=== PATIENT | female | born 1955 | race Caucasian/White ===

== ENCOUNTER 2017-01-27 13:32 | Emergency (ER) | payer OTHER, SELFPAY ==
[2017-01-27 13:32] VITALS: BMI 26.6
[2017-01-27 13:39] VITALS: BP 134/72; PULSE 77; RESP 18; TEMP 98.4
[2017-01-27] MEDS ORDERED: Amoxicillin-Clav 875-125 mg Tab PO STA (14:22)
[2017-01-27] MEDS ORDERED: Amoxicillin-Clav 875-125 mg Tab PO ONE (14:27)
--- NOTE | 2017-01-27 15:02 | C.PDOC ---
History Of Present Illness 61 yr old female with PMHx of allergies, presents to the ER stating over the past 2-3 days she has developed a headache, associated with facial pressure and increased nasal congestion. Patient states the pressure worsened when she leans forward. Denies fever, chills, chest pain, SOB, cough or dizziness. Time Seen by Provider: 01/27/17 14:05 Chief Complaint (Nursing): Cough, Cold, Congestion History Per: Patient History/Exam Limitations: no limitations Onset/Duration Of Symptoms: Days (2-3 days ) Past Medical History Reviewed: Historical Data, Nursing Documentation, Vital Signs Vital Signs: Last Vital Signs Temp 98.4 F 01/27/17 15:17 Pulse 77 01/27/17 15:17 Resp 18 01/27/17 15:17 BP 134/72 01/27/17 15:17 Pulse Ox 100 01/27/17 15:17 Family History: States: No Known Family Hx - Social History Hx Tobacco Use: No Hx Alcohol Use: No Hx Substance Use: No - Immunization History Hx Tetanus Toxoid Vaccination: No Hx Influenza Vaccination: Yes Hx Pneumococcal Vaccination: No Review Of Systems Except As Marked, All Systems Reviewed And Found Negative. Constitutional: Positive for: Other ((+) Facial pressure). Negative for: Fever , Chills ENT: Positive for: Nose Congestion (Increased nasal congestion ) Cardiovascular: Negative for: Chest Pain Respiratory: Negative for: Cough, Shortness of Breath Neurological: Positive for: Headache. Negative for: Dizziness Physical Exam - Physical Exam Appears: Non-toxic, No Acute Distress Skin: Warm, Dry, No Rash Head: Atraumatic, Normacephalic, Other ((+) Bilateral frontal sinus tenderness. ) Eye(s): bilateral: Normal Inspection, PERRL, EOMI Ear(s): Bilateral: Normal Nose: Normal, No Discharge Oral Mucosa: Moist Throat: Normal, No Erythema, No Exudate, No Drooling Neck: Normal ROM, Supple Chest: Symmetrical, No Tenderness Cardiovascular: Rhythm Regular, No Friction Rub, No Murmur Respiratory: Normal Breath Sounds, No Rales, No Rhonchi, No Stridor, No Wheezing Back: Normal Inspection, No CVA Tenderness Extremity: Normal ROM, No Swelling Neurological/Psych: Oriented x3, Normal Speech, Normal Cranial Nerves, Normal Motor Gait: Steady ED Course And Treatment O2 Sat by Pulse Oximetry: 98 (on RA) Pulse Ox Interpretation: Normal Medical Decision Making Medical Decision Making: PLAN: * Augmentin PO * Tylenol PO * Prednisone PO On re-exam, the patient reports improvement of symptoms. Lungs are CTA, heart is RRR, ambulatory in the ED steady gait. Follow up with the medical doctor within 1-2 days. Return if worsened. Disposition - Disposition Referrals: [facility] [Outside] Disposition: HOME/ ROUTINE Disposition Time: 15:00 Condition: GOOD Additional Instructions: Follow up with the medical doctor within 1-2 days, Return if worsened. 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 - Scribe Statement The provider has reviewed the documentation as recorded by the Scribe Dana Sapp All medical record entries made by the Scribtolu were at my direction and personally dictated by me. I have reviewed the chart and agree that the record accurately reflects my personal performance of the history, physical exam, medical decision making, and the department course for this patient. I have also personally directed, reviewed, and agree with the discharge instructions and disposition.
[2017-01-27 22:20] VITALS: O2SAT 98
== END 2017-01-27 15:17 | disposition home or self-care (01) ==
LOC: C.ER 13:32
DX: J32.9 Chronic sinusitis, unspecified (principal)

== ENCOUNTER 2017-02-06 09:52 | Emergency (ER) | payer OTHER ==
[2017-02-06 09:52] VITALS: BMI 26.6
[2017-02-06 10:01] VITALS: RESP 20; TEMP 98.6
--- NOTE | 2017-02-06 11:14 | C.PDOC ---
History Of Present Illness 61-year-old female, presents to the emergency department with complaints of 10- day duration of a frontal pressure headache. Patient states she was seen in the ER last week and given Rx for Augmentin to treat Sinusitis. Patient states she finished course, but symptoms persisted, resulting in her coming to ED for evaluation. She continues to have frontal pressure headache, congestion and now reports developing non-productive cough for the last 3 days. Denies nausea, vomiting, fever, chills, chest pain, SOB, back pain, dizziness, or any other associated symptoms. Time Seen by Provider: 02/06/17 10:23 Chief Complaint (Nursing): Flu-like Symptoms History Per: Patient History/Exam Limitations: no limitations Onset/Duration Of Symptoms: Days Current Symptoms Are (Timing): Still Present Associated Symptoms: Cough, Nasal Congestion Ear Symptoms: Bilateral: None Past Medical History Reviewed: Historical Data, Nursing Documentation, Vital Signs Vital Signs: Last Vital Signs Temp 98.6 F 02/06/17 10:00 Pulse 73 02/06/17 12:07 Resp 20 02/06/17 12:07 BP 128/83 02/06/17 12:07 Pulse Ox 97 02/06/17 12:07 - Medical History PMH: No Chronic Diseases Surgical History: No Surg Hx Family History: States: No Known Family Hx - Social History Hx Tobacco Use: No Hx Alcohol Use: No Hx Substance Use: No - Immunization History Hx Tetanus Toxoid Vaccination: No Hx Influenza Vaccination: Yes Hx Pneumococcal Vaccination: No Review Of Systems Constitutional: Negative for: Fever, Chills, Malaise Eyes: Negative for: Vision Change ENT: Positive for: Nose Congestion. Negative for: Ear Pain, Throat Pain Cardiovascular: Negative for: Chest Pain, Palpitations Respiratory: Positive for: Cough. Negative for: Shortness of Breath Gastrointestinal: Positive for: Abdominal Pain. Negative for: Nausea, Vomiting Musculoskeletal: Negative for: Neck Pain, Back Pain Skin: Negative for: Rash Neurological: Positive for: Headache. Negative for: Weakness, Numbness, Dizziness Physical Exam - Physical Exam Appears: Non-toxic, No Acute Distress Skin: Warm, Dry, No Diaphoretic, No Pale, No Rash Head: Atraumatic, Normacephalic, No Tenderness, No Swelling Eye(s): bilateral: Normal Inspection, PERRL, EOMI Nose: Normal Oral Mucosa: Moist Throat: Normal, No Erythema, No Exudate, No Drooling, No Mass Neck: Normal ROM, Supple Chest: Symmetrical Cardiovascular: Rhythm Regular, No Murmur Respiratory: Normal Breath Sounds, No Rales, No Rhonchi, No Wheezing Extremity: Bilateral: Atraumatic, Normal Color And Temperature, Normal ROM Neurological/Psych: Oriented x3, Normal Speech, Normal Cranial Nerves, Normal Motor, Normal Sensation, Other (No focal deficits) Gait: Steady ED Course And Treatment O2 Sat by Pulse Oximetry: 96 Pulse Ox Interpretation: Normal - Other Rad CXR X-Ray: Viewed By Me, Read By Radiologist Interpretation: HISTORY: cough. COMPARISON: No prior. TECHNIQUE: Chest PA and lateral. FINDINGS: LUNGS: Biapical pleural thickening with upper lobe granulomatous changes. Small nodular density at the right lung apex. Bibasilar breast and nipple shadows. Diffuse increased interstitial lung markings. Right hilar prominence. Right midlung atelectasis. Few scattered nodular densities throughout both lungs. PLEURA: No significant pleural effusion identified. No pneumothorax apparent. CARDIOVASCULAR: Tortuous aorta. OSSEOUS STRUCTURES: Degenerative changes in the spine with a scoliotic curvature. VISUALIZED UPPER ABDOMEN: Normal. OTHER FINDINGS: None. IMPRESSION: Biapical pleural thickening with upper lobe granulomatous changes. Small nodular density at the right lung apex. Bibasilar breast and nipple shadows. Diffuse increased interstitial lung markings. Right hilar prominence. Right midlung atelectasis. Few scattered nodular densities throughout both lungs. - CT Scan/US Ct head Other Rad Studies (CT/US): Read By Radiologist, Radiology Report Reviewed CT/US Interpretation: PROCEDURE: CT HEAD WITHOUT CONTRAST. HISTORY: headache frontal x 10 days. COMPARISON: None available. TECHNIQUE: Axial computed tomography images were obtained through the head/brain without intravenous contrast. Radiation dose: Total exam DLP = 789 mGy-cm. This CT exam was performed using one or more of the following dose reduction techniques: Automated exposure control, adjustment of the mA and/or kV according to patient size, and/or use of iterative reconstruction technique. FINDINGS: HEMORRHAGE: No intracranial hemorrhage. BRAIN: No mass effect or edema. No atrophy or chronic microvascular ischemic changes. VENTRICLES: Unremarkable. No hydrocephalus. CALVARIUM: Unremarkable. PARANASAL SINUSES: Unremarkable as visualized. No significant inflammatory changes. MASTOID AIR CELLS: Unremarkable as visualized. No inflammatory changes. OTHER FINDINGS: None. IMPRESSION: Normal CT of the Head. Medical Decision Making Medical Decision Making: Impression 61y/o F comes in w/ frontal pressure headache x10 days. Recently treated for sinusitis with Augmentin Plan: * CT Head * Chest X-Ray * Sudafed * Reassess and Disposition Progress: CT head showed no acute findings and CXR showed no acute disease Patient remained well and in no acute distress. She has no fever, lungs clear bilaterally and neurological exam is normal. Upon reevaluation patient reports feeling mild improvement of headache. Explain with normal exam and CT scan symptoms likely related to sinus congestion and recommend decongestants and to follow up with PCP or neuro if the symptoms persist. Patient feels comfortable going home and will be discharged. Disposition Counseled Patient/Family Regarding: Studies Performed, Diagnosis, Need For Followup, Rx Given - Disposition Referrals: Adelina Singleton MD [Staff Provider] - Disposition: HOME/ ROUTINE Disposition Time: 12:00 Condition: IMPROVED Additional Instructions: Vaya a harding mdico o la clnica en 2-5 bazan sin falta, para mas evaluacin. [place] los medicamentos salvador indicado. Volver a la moise de emergencia en cualquier momento si los sntomas persisten o empeoran. 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 - Scribe Statement The provider has reviewed the documentation as recorded by the Scribe (Luna Baez) All medical record entries made by the Scribe were at my direction and personally dictated by me. I have reviewed the chart and agree that the record accurately reflects my personal performance of the history, physical exam, medical decision making, and the department course for this patient. I have also personally directed, reviewed, and agree with the discharge instructions and disposition.
--- NOTE | 2017-02-06 11:46 | CT ---
PROCEDURE: CT HEAD WITHOUT CONTRAST. HISTORY: headache frontal x 10 days COMPARISON: None available. TECHNIQUE: Axial computed tomography images were obtained through the head/brain without intravenous contrast. Radiation dose: Total exam DLP = 789 mGy-cm. This CT exam was performed using one or more of the following dose reduction techniques: Automated exposure control, adjustment of the mA and/or kV according to patient size, and/or use of iterative reconstruction technique. FINDINGS: HEMORRHAGE: No intracranial hemorrhage. BRAIN: No mass effect or edema. No atrophy or chronic microvascular ischemic changes. VENTRICLES: Unremarkable. No hydrocephalus. CALVARIUM: Unremarkable. PARANASAL SINUSES: Unremarkable as visualized. No significant inflammatory changes. MASTOID AIR CELLS: Unremarkable as visualized. No inflammatory changes. OTHER FINDINGS: None. IMPRESSION: Normal CT of the Head.
--- NOTE | 2017-02-06 12:02 | RAD ---
HISTORY: cough COMPARISON: No prior. TECHNIQUE: Chest PA and lateral FINDINGS: LUNGS: Biapical pleural thickening with upper lobe granulomatous changes. Small nodular density at the right lung apex. Bibasilar breast and nipple shadows. Diffuse increased interstitial lung markings. Right hilar prominence. Right midlung atelectasis. Few scattered nodular densities throughout both lungs. PLEURA: No significant pleural effusion identified. No pneumothorax apparent. CARDIOVASCULAR: Tortuous aorta. OSSEOUS STRUCTURES: Degenerative changes in the spine with a scoliotic curvature. VISUALIZED UPPER ABDOMEN: Normal. OTHER FINDINGS: None. IMPRESSION: Biapical pleural thickening with upper lobe granulomatous changes. Small nodular density at the right lung apex. Bibasilar breast and nipple shadows. Diffuse increased interstitial lung markings. Right hilar prominence. Right midlung atelectasis. Few scattered nodular densities throughout both lungs.
[2017-02-06 12:08] VITALS: BP 128/83; PULSE 73
[2017-02-07 09:47] VITALS: O2SAT 96
== END 2017-02-06 12:07 | disposition home or self-care (01) ==
LOC: C.ER 09:52
DX: J06.9 Acute upper respiratory infection, unspecified (principal); R51 Headache

== ENCOUNTER 2017-05-01 08:35 | Emergency (ER) | payer OTHER ==
[2017-05-01 08:36] VITALS: BMI 29.2
[2017-05-01 08:58] VITALS: RESP 18
--- NOTE | 2017-05-01 10:03 | C.PDOC ---
Time Seen by Provider: 05/01/17 09:11 Chief Complaint (Nursing): ENT Problem History Per: Patient Onset/Duration Of Symptoms: Days (few) Current Symptoms Are (Timing): Still Present Associated Symptoms: Sore Throat, Nasal Congestion Severity: Moderate Additional History Per: Prior Records Past Medical History Reviewed: Historical Data, Nursing Documentation, Vital Signs Vital Signs: Last Vital Signs Temp 99.1 F 05/01/17 08:51 Pulse 75 05/01/17 08:51 Resp 18 05/01/17 08:51 BP 127/89 05/01/17 08:51 Pulse Ox 98 05/01/17 08:51 - Medical History PMH: No Chronic Diseases Family History: States: Unknown Family Hx - Social History Hx Tobacco Use: No Hx Alcohol Use: No Hx Substance Use: No - Immunization History Hx Tetanus Toxoid Vaccination: No Hx Influenza Vaccination: Yes Hx Pneumococcal Vaccination: No Review Of Systems Except As Marked, All Systems Reviewed And Found Negative. Constitutional: Negative for: Fever Eyes: Positive for: Other (itchy eyes). Negative for: Vision Change ENT: Positive for: Nose Congestion (sneezing), Throat Pain Respiratory: Negative for: Cough, Shortness of Breath Gastrointestinal: Negative for: Vomiting, Abdominal Pain Musculoskeletal: Negative for: Neck Pain Skin: Negative for: Rash Neurological: Positive for: Headache. Negative for: Weakness, Numbness, Seizures, Altered Mental Status Physical Exam - Physical Exam Appears: Non-toxic, No Acute Distress Skin: Normal Color, Warm, Dry, No Rash Head: Atraumatic, Normacephalic Eye(s): bilateral: PERRL, EOMI, Other (mild conjunctival injection) Oral Mucosa: Moist, No Drooling, No Trismus Throat: Erythema, No Exudate, No Drooling, No Mass Neck: Normal ROM, Supple Lymphatic: No Adenopathy Cardiovascular: Rhythm Regular Respiratory: Normal Breath Sounds, No Accessory Muscle Use Gastrointestinal/Abdominal: Soft, No Tenderness Back: No CVA Tenderness Extremity: Normal ROM Neurological/Psych: Oriented x3, Normal Speech, Normal Motor, Normal Sensation ED Course And Treatment O2 Sat by Pulse Oximetry: 98 Pulse Ox Interpretation: Normal Disposition Counseled Patient/Family Regarding: Diagnosis, Need For Followup, Rx Given - Disposition Referrals: [facility] at [facility] [Outside] Disposition: HOME/ ROUTINE Disposition Time: 10:03 Condition: STABLE Additional Instructions: Follow up in the clinic for further evaluation and treatment. Return to the ER if you develop fever, trouble breathing or swallowing, worsening of symptoms or if you have any other concerns. Prescriptions: Fluticasone Nasal [Flonase] 2 spr NS DAILY #1 bottle Montelukast [Singulair] 10 mg PO DAILY #30 tab Instructions: Allergies (ED) Forms: [employer] (Sinhala) Print Language: ENGLISH - Clinical Impression Clinical Impression: Hay fever
[2017-05-01 10:11] VITALS: BP 118/85; PULSE 70; TEMP 98; O2SAT 99
== END 2017-05-01 10:17 | disposition home or self-care (01) ==
LOC: C.ER 08:35
DX: J30.1 Allergic rhinitis due to pollen (principal)

== ENCOUNTER 2017-05-30 16:20 | Emergency (ER) | payer OTHER ==
[2017-05-30 16:21] VITALS: BMI 29.2
[2017-05-30 16:25] VITALS: TEMP 97.9; O2SAT 98
[2017-05-30] MEDS ORDERED: Dexamethasone 4 mg/1 ml IM STA (16:45)
[2017-05-30] MEDS ORDERED: Dexamethasone 4 mg/1 ml ONE (17:12)
--- NOTE | 2017-05-30 17:34 | C.PDOC ---
History Of Present Illness 61 year old female presents to the ED with complaint of lower back pain that radiates to her left leg described as "pulling sensation". Patient states this has been occurring for approximately 3 days, but today the pain was unbearable. Patient reports experiencing similar symptoms approximately 2 years ago but were resolved after taking Prednisone as prescribed. She denies falls, trauma, bowel/bladder incontinence, fever, abdominal pain, extremity numbness/weakness. Time Seen by Provider: 05/30/17 16:30 Chief Complaint (Nursing): Lower Extremity Problem/Injury History Per: Patient History/Exam Limitations: no limitations Onset/Duration Of Symptoms: Days Current Symptoms Are (Timing): Worse Recent travel outside of the [place]: No Past Medical History Reviewed: Historical Data, Nursing Documentation, Vital Signs Vital Signs: Last Vital Signs Temp 97.9 F 05/30/17 16:24 Pulse 65 05/30/17 17:43 Resp 18 05/30/17 17:43 BP 128/75 05/30/17 17:43 Pulse Ox 98 05/30/17 20:32 - Medical History PMH: Denies: HTN Surgical History: No Surg Hx Family History: States: Unknown Family Hx - Social History Hx Tobacco Use: No Hx Alcohol Use: No Hx Substance Use: No - Immunization History Hx Tetanus Toxoid Vaccination: No Hx Influenza Vaccination: Yes Hx Pneumococcal Vaccination: No Review Of Systems Except As Marked, All Systems Reviewed And Found Negative. Musculoskeletal: Positive for: Back Pain (Lower), Leg Pain (Left) Neurological: Negative for: Weakness, Numbness Physical Exam - Physical Exam Appears: Well, Non-toxic, No Acute Distress Skin: Normal Color, Warm, Dry, No Rash Head: Atraumatic, Normacephalic Eye(s): bilateral: Normal Inspection, PERRL, EOMI Oral Mucosa: Moist Neck: Normal ROM, No Midline Cervical Tenderness, No Paracervical Tenderness, Supple Chest: Symmetrical, No Tenderness Cardiovascular: Rhythm Regular, No Friction Rub, No Murmur Respiratory: Normal Breath Sounds, No Rales, No Rhonchi, No Wheezing Gastrointestinal/Abdominal: Bowel Sounds (active), Soft, No Tenderness Back: No CVA Tenderness, No Vertebral Tenderness, Paraspinal Tenderness (lumbar) Extremity: Normal ROM, No Tenderness, Capillary Refill (less than 2 seconds), No Deformity, No Swelling Neurological/Psych: Oriented x3, Normal Speech, Normal Cognition, Normal Cranial Nerves, Normal Motor, Normal Sensation Gait: Steady ED Course And Treatment O2 Sat by Pulse Oximetry: 98 (Room air) Pulse Ox Interpretation: Normal Medical Decision Making Medical Decision Making: Plan : * Decadron IM * Flexeril 10 mg PO * Toradol IM. On re-exam, the patient reports improvement of symptoms. Lungs are CTA, heart is RRR, ambulatory in the ED with steady gait. abdomen is soft, non-tender and tolerating PO well. Follow up with the medical doctor within 1-2 days. Return if worsened. Disposition - Disposition Referrals: [facility] at [facility] [Outside] Clinic,Med Surg [Primary Care Provider] - Disposition: HOME/ ROUTINE Disposition Time: 17:20 Condition: GOOD Additional Instructions: Follow up with the medical doctor within 1-2 days. Return if worsened. 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 - Scribe Statement The provider has reviewed the documentation as recorded by the Scribe Ruiz Akers All medical record entries made by the Scribe were at my direction and personally dictated by me. I have reviewed the chart and agree that the record accurately reflects my personal performance of the history, physical exam, medical decision making, and the department course for this patient. I have also personally directed, reviewed, and agree with the discharge instructions and disposition.
[2017-05-30 17:43] VITALS: BP 128/75; PULSE 65; RESP 18
== END 2017-05-30 17:44 | disposition home or self-care (01) ==
LOC: SUPCPDRO 16:20 → C.ER 16:20
DX: M54.32 Sciatica, left side (principal)
CPT/HCPCS: 96372; 99284; J1100; J1885

== ENCOUNTER 2017-06-08 17:01 | Emergency (ER) | payer OTHER ==
[2017-06-08 17:01] VITALS: BMI 29.2
[2017-06-08 17:35] VITALS: RESP 18
--- NOTE | 2017-06-08 18:33 | C.PDOC ---
History Of Present Illness Patient presents to ED c/o left sided low back pain that radiates down her left leg. Symptoms have been present for several days, and patient was seen in this ED 1 week ago for same symptoms (which improved). She denies falls/injuries, dysuria/hematuria, flank pain, abdominal pain, sensory changes, extremity weakness, urinary retention, bowel/bladder incontinence. She has capo yet followed up with clinic, states she has scheduled appointment on Jun 15. Time Seen by Provider: 06/08/17 17:34 Chief Complaint (Nursing): Lower Extremity Problem/Injury History Per: Patient History/Exam Limitations: no limitations Onset/Duration Of Symptoms: Days (2-3) Current Symptoms Are (Timing): Still Present Severity: Moderate - Hip Description Of Injury: denies: Fell - Knee Description Of Injury: denies: Fell - Ankle/Foot Description Of Injury: denies: Fell Past Medical History Reviewed: Historical Data, Nursing Documentation, Vital Signs Vital Signs: Last Vital Signs Temp 97.7 F 06/08/17 18:40 Pulse 72 06/08/17 18:40 Resp 18 06/08/17 18:40 BP 119/79 06/08/17 18:40 Pulse Ox 100 06/08/17 18:57 - Medical History Other PMH: sciatica Family History: States: No Known Family Hx - Social History Hx Tobacco Use: No Hx Alcohol Use: No Hx Substance Use: No - Immunization History Hx Tetanus Toxoid Vaccination: No Hx Influenza Vaccination: Yes Hx Pneumococcal Vaccination: No Review Of Systems Except As Marked, All Systems Reviewed And Found Negative. Constitutional: Negative for: Fever, Chills Cardiovascular: Negative for: Chest Pain Respiratory: Negative for: Cough, Shortness of Breath Gastrointestinal: Negative for: Nausea, Vomiting, Abdominal Pain, Diarrhea Genitourinary: Negative for: Dysuria, Hematuria Musculoskeletal: Positive for: Back Pain Skin: Negative for: Rash Neurological: Negative for: Weakness, Numbness Physical Exam - Physical Exam Appears: Well, Non-toxic, Other (in mild to moderate pain ) Skin: Normal Color, Warm, Dry, No Rash Oral Mucosa: Moist Cardiovascular: Rhythm Regular Respiratory: Normal Breath Sounds, No Rales, No Rhonchi, No Wheezing Gastrointestinal/Abdominal: Normal Exam, Bowel Sounds, Soft, No Tenderness Back: No CVA Tenderness, No Vertebral Tenderness, Paraspinal Tenderness (left sided lumbar paraspinal TTP at approx L4-L5 level) Extremity: Normal ROM, No Tenderness, No Pedal Edema, No Calf Tenderness Extremity: Bilateral: Atraumatic, Normal Color And Temperature, Normal ROM Pulses: Left Dorsalis Pedis: Normal, Right Dorsalis Pedis: Normal Neurological/Psych: Oriented x3, Normal Motor, Normal Sensation Gait: Steady ED Course And Treatment O2 Sat by Pulse Oximetry: 100 (RA) Pulse Ox Interpretation: Normal Progress Note: Patient given PO Prednisone, PO Flexeril and IM toradol. Reevaluation Time: 18:35 Reassessment Condition: Improved (On reassessment, patient states her pain has improved and she is feeling better. She is ambulating normally in ED. Rxs for prednisone, naprosyn and flexeril given. Patient instructed to follow up during her scheduled clinic appt, and she understands she should return to ED if symptoms worsen.) Disposition Counseled Patient/Family Regarding: Diagnosis, Need For Followup, Rx Given - Disposition Referrals: [facility] at [facility] [Outside] Disposition: HOME/ ROUTINE Disposition Time: 18:35 Condition: STABLE Additional Instructions: SEGUIMIENTO CON CHAVES MDICO / CLNICA SEGN LO ESTABLECIDO EL USE MEDICAMENTOS SEGN LO INDICADO SI LOS SNTOMAS EMPEORAN, VUELVA A LA TINY DE EMERGENCIAS Prescriptions: Cyclobenzaprine [Cyclobenzaprine HCl] 10 mg PO BID PRN #15 tab PRN Reason: Muscle Spasm Naproxen 375 mg PO BID PRN #20 tablet PRN Reason: pain predniSONE [predniSONE Tab] 40 mg PO DAILY #6 tab Instructions: Sciatica (ED) Forms: [employer] (Turkmen) Print Language: ARABIC - POA Present On Arrival: None - Clinical Impression Clinical Impression: Sciatica
[2017-06-08 18:41] VITALS: BP 119/79; PULSE 72; TEMP 97.7
[2017-06-08 18:57] VITALS: O2SAT 100
== END 2017-06-08 18:47 | disposition home or self-care (01) ==
LOC: C.ER 17:01
DX: M54.32 Sciatica, left side (principal)
CPT/HCPCS: 96372; 99284; J1885

== ENCOUNTER 2017-09-02 14:34 | Emergency (ER) | payer OTHER ==
[2017-09-02 14:34] VITALS: BMI 29.2
[2017-09-02 14:41] VITALS: RESP 20
[2017-09-02] MEDS ORDERED: Sodium Chloride 0.9% 1,000 ML IV ONE (15:18)
--- NOTE | 2017-09-02 15:20 | C.PDOC ---
History Of Present Illness 62 yo female, presents with lower abd pain and back pain x 3 days. no known trauma. also reports mild morrow, no fevers, n/v/d, urinary changes, bowel changes Time Seen by Provider: 09/02/17 15:09 Chief Complaint (Nursing): Back Pain Past Medical History Reviewed: Historical Data, Nursing Documentation, Vital Signs Vital Signs: Last Vital Signs Temp 98.8 F 09/02/17 14:39 Pulse 79 09/02/17 14:39 Resp 20 09/02/17 14:39 BP 117/78 09/02/17 14:39 Pulse Ox 99 09/02/17 15:20 - Medical History PMH: Denies: HTN Family History: States: Unknown Family Hx - Social History Hx Tobacco Use: No Hx Alcohol Use: No Hx Substance Use: No - Immunization History Hx Tetanus Toxoid Vaccination: No Hx Influenza Vaccination: Yes Hx Pneumococcal Vaccination: No Review Of Systems Except As Marked, All Systems Reviewed And Found Negative. Gastrointestinal: Positive for: Abdominal Pain Physical Exam - Physical Exam Appears: Well, No Acute Distress Skin: Normal Color, Warm, Dry Eye(s): bilateral: Normal Inspection, PERRL, EOMI Nose: Normal Throat: Normal Neck: Normal Cardiovascular: Rhythm Regular Respiratory: Normal Breath Sounds Gastrointestinal/Abdominal: Normal Exam, Soft, Tenderness (mild lower), No Guarding, No Rebound Back: Normal Inspection Extremity: Normal ROM ED Course And Treatment - Laboratory Results Result Diagrams: 09/02/17 15:54 09/02/17 15:54 O2 Sat by Pulse Oximetry: 99 Medical Decision Making Medical Decision Making: r/o uti, renal stone, colitis, msk pain - labs imagng pendiing 430: pt reassesed states feels better. offered ct imaging to further eval for renal stone, and other etiollogy of pain. pt declines states she prefers to go home and return w/ worsening. observed sleeping in nad. Disposition - Disposition Disposition: HOME/ ROUTINE Disposition Time: 16:36 Condition: STABLE Additional Instructions: you are declining ct imaging at this time. you are able to return at any time with any concern. Instructions: Acute Abdominal Pain (DC), Acute Headache (ED) Forms: [employer] (Equatorial Guinean) - Clinical Impression Clinical Impression: Abdominal pain, Headache
[2017-09-02] MEDS ORDERED: Sodium Chloride 0.9% 1,000 ML ONE (15:32)
[2017-09-02 16:03] LABS: BASO # 0.1 K/uL (0.0-0.2); BASO % 1.2 % (0.0-2.0); EOS # 0.9 K/uL (0.0-0.7); EOS % 8.8 % (0.0-4.0); HEMOGLOBIN 12.8 g/dL (11.0-16.0); LYMPH # 2.2 K/uL (1.0-4.3); LYMPH % 21.4 % (20.0-40.0); MEAN CELL VOLUME 85.6 fL (81.0-99.0); MEAN CORPUSCULAR HEMOGLOBIN 28.8 pg (27.0-31.0); MEAN CORPUSCULAR HGB CONC 33.6 g/dL (33.0-37.0); MEAN PLATELET VOLUME 7.7 fL (7.2-11.7); MONO # 0.6 K/uL (0.0-0.8); MONO % 6.1 % (0.0-10.0); NEUT # 6.5 K/uL (1.8-7.0); NEUT % 62.5 % (50.0-75.0); RBC 4.45 Mil/uL (3.80-5.20); RED CELL DISTRIBUTION WIDTH 13.7 % (11.5-14.5); WHITE BLOOD COUNT 10.4 K/uL (4.8-10.8)
[2017-09-02 16:14] LABS: ALB/GLOB RATIO 1.1 (1.0-2.1); ALBUMIN 4.1 g/dL (3.5-5.0); GFR AFRICAN-AMERICAN > 60; GFR NON-AFRICAN AMERICAN > 60; LIPASE 67 U/L (23-300)
[2017-09-02 16:15] LABS: ALT/SGPT 34 U/L (9-52); AST/SGOT 37 U/L (14-36); BLOOD UREA NITROGEN 17 mg/dL (7-17)
[2017-09-02 16:24] LABS: SQUAMOUS EPITHIAL < 1 /hpf (0-5); URINE BILIRUBIN NEGATIVE (NEGATIVE); URINE BLOOD 1+ (NEGATIVE); URINE CLARITY Clear (Clear); URINE COLOR Straw (YELLOW); URINE GLUCOSE (UA) NORMAL (Normal); URINE LEUKOCYTE ESTERASE NEG Leu/uL (Negative); URINE NITRATE NEGATIVE (NEGATIVE); URINE PROTEIN NEGATIVE (NEGATIVE); URINE UROBILINOGEN NORMAL mg/dL (0.2-1.0)
[2017-09-02 17:11] VITALS: BP 111/71; PULSE 69; TEMP 98.3; O2SAT 98
== END 2017-09-02 17:11 | disposition home or self-care (01) ==
LOC: C.ER 14:34
DX: R51 Headache (principal); R10.30 Lower abdominal pain, unspecified
CPT/HCPCS: 80053; 81001; 83690; 85025; 96360; 99283; J7040

== ENCOUNTER 2017-09-06 17:33 | Emergency (ER) | payer OTHER ==
[2017-09-06 18:18] VITALS: BMI 25.0
[2017-09-06 18:21] VITALS: BP 109/72; PULSE 63; RESP 20; TEMP 98.8; O2SAT 98
--- NOTE | 2017-09-06 20:55 | CT ---
EXAM: CT Abdomen and Pelvis Without Intravenous Contrast EXAM DATE/TIME: Exam ordered 09/06/2017 6:37 PM CLINICAL HISTORY: 62 years old, female; Pain; Other: Loewr back; Additional info: Back pain 5 days, poss stone TECHNIQUE: Axial computed tomography images of the abdomen and pelvis without intravenous contrast. All CT scans at this facility use one or more dose reduction techniques, viz.: automated exposure control; ma/kV adjustment per patient size (including targeted exams where dose is matched to indication; i.e. head); or iterative reconstruction technique. Coronal and sagittal reformatted images were created and reviewed. COMPARISON: CT - ABD PELVIS PO IV CONTRAST 2015-10-20 17:25 FINDINGS: Lower thorax: Hypoventilatory changes are seen in the dependent portion of both lung bases. ABDOMEN: Liver: Unremarkable. Gallbladder and bile ducts: Unremarkable. No calcified stones. No ductal dilation. Pancreas: Unremarkable. No ductal dilation. Spleen: Unremarkable. No splenomegaly. Adrenals: Unremarkable. No mass. Kidneys and ureters: Unremarkable. No obstructing stones. No hydronephrosis. Stomach and bowel: Diverticula are noted within the sigmoid colon. No obstruction. No mucosal thickening. Appendix: No findings to suggest acute appendicitis. PELVIS: Bladder: Unremarkable. No stones. Reproductive: Unremarkable as visualized. ABDOMEN and PELVIS: Intraperitoneal space: Unremarkable. No free air. No significant fluid collection. Bones/joints: Mild degenerative changes are noted of the lumbar spine. There is a levoscoliosis of the thoracolumbar spine No acute fracture. No dislocation. Soft tissues: Unremarkable. Vasculature: Unremarkable. No abdominal aortic aneurysm. Lymph nodes: Unremarkable. No enlarged lymph nodes. IMPRESSION: 1. No acute findings. No renal ureteral or bladder calculi. No hydronephrosis or hydro-ureter. 2. Sigmoid colonic diverticulosis. No diverticulitis. 3. Levoscoliosis of the thoracolumbar spine with secondary degenerative changes.
--- NOTE | 2017-09-06 21:04 | C.PDOC ---
History Of Present Illness 62 year old female presents to the ED for evaluation of lower back pain which began 5 days ago. Patient was seen in the ED 4 days ago for similar complaints. Patient was given medicine, felt better and left the ED without undergoing imaging. Patient states her pain has returned and presents to the ED for further tests. She denies neck pain, chest pain, urinary/bowel incontinence, upper/lower extremity numbness/weakness, recent trauma/falls or injuries. Time Seen by Provider: 09/06/17 18:34 Chief Complaint (Nursing): Back Pain History Per: Patient History/Exam Limitations: no limitations Onset/Duration Of Symptoms: Days (5) Current Symptoms Are (Timing): Still Present Quality Of Discomfort: "Pain" Previous Symptoms: Back Pain Associated Symptoms: denies: Incontinence, New Weakness, New Numbness Additional History Per: Patient Past Medical History Reviewed: Historical Data, Nursing Documentation, Vital Signs Vital Signs: Last Vital Signs Temp 98.8 F 09/06/17 18:18 Pulse 63 09/06/17 18:18 Resp 20 09/06/17 21:17 BP 109/72 09/06/17 18:18 Pulse Ox 98 09/06/17 21:53 - Medical History PMH: No Chronic Diseases Surgical History: No Surg Hx Family History: States: Unknown Family Hx - Social History Hx Tobacco Use: No Hx Alcohol Use: No Hx Substance Use: No - Immunization History Hx Tetanus Toxoid Vaccination: No Hx Influenza Vaccination: Yes Hx Pneumococcal Vaccination: No Review Of Systems Constitutional: Negative for: Fever Eyes: Negative for: Vision Change, Redness Cardiovascular: Negative for: Chest Pain, Palpitations Respiratory: Negative for: Cough, Shortness of Breath Gastrointestinal: Positive for: Abdominal Pain. Negative for: Vomiting Genitourinary: Negative for: Incontinence Musculoskeletal: Positive for: Back Pain (lower). Negative for: Neck Pain, Leg Pain Neurological: Negative for: Weakness, Numbness Physical Exam - Physical Exam Appears: Non-toxic, No Acute Distress Skin: Normal Color, Warm, Dry Head: Atraumatic, Normacephalic Eye(s): bilateral: Normal Inspection Oral Mucosa: Moist Neck: Normal ROM, Supple Chest: Symmetrical, No Deformity, No Tenderness Cardiovascular: Rhythm Regular, No Murmur Respiratory: Normal Breath Sounds, No Rales, No Rhonchi, No Wheezing Gastrointestinal/Abdominal: Soft, No Tenderness Back: Normal Inspection, No CVA Tenderness, No Vertebral Tenderness, Paraspinal Tenderness (lumbar) Extremity: Bilateral: Atraumatic, Normal Color And Temperature, Normal ROM Neurological/Psych: Oriented x3, Normal Speech, Normal Motor, Normal Sensation Gait: Steady ED Course And Treatment O2 Sat by Pulse Oximetry: 98 (on RA) Pulse Ox Interpretation: Normal - CT Scan/US CT A/P Other Rad Studies (CT/US): Interpreted By Me, Read By Radiologist, Radiology Report Reviewed CT/US Interpretation: EXAM: CT Abdomen and Pelvis Without Intravenous Contrast. EXAM DATE/TIME: Exam ordered 09/06/2017 6:37 PM. CLINICAL HISTORY: 62 years old, female; Pain; Other: Loewr back; Additional info: Back pain 5 days , poss stone. TECHNIQUE: Axial computed tomography images of the abdomen and pelvis without intravenous contrast. All CT. scans at this facility use one or more dose reduction techniques, viz.: automated exposure control;. ma/kV adjustment per patient size (including targeted exams where dose is matched to indication; i.e. head); or iterative reconstruction technique. Coronal and sagittal reformatted images were created and reviewed. COMPARISON: CT - ABD PELVIS PO IV CONTRAST 2015-10-20 17:25. FINDINGS: Lower thorax: Hypoventilatory changes are seen in the dependent portion of both lung bases. ABDOMEN: Liver: Unremarkable. Gallbladder and bile ducts: Unremarkable. No calcified stones. No ductal dilation. Pancreas: Unremarkable. No ductal dilation. Spleen: Unremarkable. No splenomegaly. Adrenals: Unremarkable. No mass. Kidneys and ureters: Unremarkable. No obstructing stones. No hydronephrosis. Stomach and bowel: Diverticula are noted within the sigmoid colon. No obstruction. No mucosal. thickening. Appendix: No findings to suggest acute appendicitis. PELVIS: Bladder: Unremarkable. No stones. Reproductive: Unremarkable as visualized. ABDOMEN and PELVIS: Intraperitoneal space: Unremarkable. No free air. No significant fluid collection. Bones/joints : Mild degenerative changes are noted of the lumbar spine. There is a levoscoliosis of. the thoracolumbar spine No acute fracture. No dislocation. Soft tissues: Unremarkable. Vasculature: Unremarkable. No abdominal aortic aneurysm. Lymph nodes: Unremarkable. No enlarged lymph nodes. IMPRESSION: 1. No acute findings. No renal ureteral or bladder calculi. No hydronephrosis or hydro-ureter. 2. Sigmoid colonic diverticulosis. No diverticulitis. 3. Levoscoliosis of the thoracolumbar spine with secondary degenerative changes. Medical Decision Making Medical Decision Making: Impression: 62 y/o female with lower back pain Plan: * CT A/P * Toradol IM Progress: CT A/P ordered and reviewed. Toradol IM administered. On reassessment, patient is resting comfortably, showing no signs of distress and reports an improvement in her symptoms. Patient is ambulatory in the ED and is stable for discharge. She is advised to follow up with PMD within 1-2 days for further evaluation. Disposition Counseled Patient/Family Regarding: Diagnosis, Need For Followup, Rx Given - Disposition Referrals: Adelina Singleton MD [Staff Provider] - Disposition: HOME/ ROUTINE Disposition Time: 21:04 Condition: GOOD Additional Instructions: Brunner informe de tomografa computada fue entregado a usted [place] medicamento para el dolor segn sea necesario Raul un seguimiento con la clnica para ms cuidado Prescriptions: traMADol [Ultram] 50 mg PO Q8 #15 tab Instructions: Acute Low Back Pain (DC) Forms: [employer] (Italian) Print Language: NEPALI - POA Present On Arrival: None - Clinical Impression Clinical Impression: Low back pain - PA / CORPORATE OFFICER / Resident Statement MD/DO has reviewed & agrees with the documentation as recorded. - Scribe Statement The provider has reviewed the documentation as recorded by the Scribe (Leanne Franks) All medical record entries made by the Scribe were at my direction and personally dictated by me. I have reviewed the chart and agree that the record accurately reflects my personal performance of the history, physical exam, medical decision making, and the department course for this patient. I have also personally directed, reviewed, and agree with the discharge instructions and disposition.
== END 2017-09-06 21:17 | disposition home or self-care (01) ==
LOC: C.ER 17:33
DX: M54.5 Low back pain (principal)
CPT/HCPCS: 74176; 96372; 99283; J1885

== ENCOUNTER 2017-10-26 06:36 | Emergency (ER) | payer OTHER, SELFPAY ==
[2017-10-26 06:37] VITALS: BMI 27.3
[2017-10-26 06:47] VITALS: TEMP 98.6; O2SAT 99
[2017-10-26] MEDS ORDERED: Sodium Chloride 0.9% 1,000 ML IV ONE (07:21)
[2017-10-26] MEDS ORDERED: Iohexol 240 (50 ml) PO STA (07:21)
--- NOTE | 2017-10-26 07:25 | C.PDOC ---
History Of Present Illness 62-year-old female presents to the emergency room with 3 days of diffuse abdominal pain associated with multiple episodes of watery yellow diarrhea and nausea. No fever, vomiting, blood in stool, or urinary symptoms. Patient has had a decreased appetite. Time Seen by Provider: 10/26/17 07:01 Chief Complaint (Nursing): Abdominal Pain History Per: Patient History/Exam Limitations: no limitations Onset/Duration Of Symptoms: Days (x3) Current Symptoms Are (Timing): Still Present Location Of Pain/Discomfort: Diffuse Associated Symptoms: Nausea, Diarrhea, Loss Of Appetite Past Medical History Reviewed: Historical Data, Nursing Documentation, Vital Signs Vital Signs: Last Vital Signs Temp 98.6 F 10/26/17 06:43 Pulse 82 10/26/17 06:43 Resp 14 10/26/17 06:43 BP 108/61 10/26/17 06:43 Pulse Ox 99 10/26/17 07:42 - Medical History PMH: Denies: HTN Surgical History: No Surg Hx Family History: States: Unknown Family Hx - Social History Hx Tobacco Use: No Hx Alcohol Use: No Hx Substance Use: No - Immunization History Hx Tetanus Toxoid Vaccination: No Hx Influenza Vaccination: Yes Hx Pneumococcal Vaccination: No Review Of Systems Constitutional: Negative for: Fever, Chills Gastrointestinal: Positive for: Nausea, Abdominal Pain, Diarrhea. Negative for : Vomiting, Hematochezia Genitourinary: Negative for: Dysuria, Frequency, Hematuria Physical Exam - Physical Exam Appears: Non-toxic, No Acute Distress Skin: No Rash Head: Atraumatic, Normacephalic Eye(s): bilateral: PERRL, EOMI Oral Mucosa: Moist Neck: Supple Chest: No Tenderness Cardiovascular: Rhythm Regular, No Murmur Respiratory: No Rales, No Rhonchi, No Wheezing, Other (Clear to auscultation bilaterally) Gastrointestinal/Abdominal: Bowel Sounds (present), Soft, Tenderness (Diffuse tenderness, more pronounced at the LLQ), No Distention, No Guarding, No Rebound , Other (No stool in the vault on the guaiac) Back: No CVA Tenderness Extremity: No Calf Tenderness, No Swelling Neurological/Psych: Other (Alert, no focal deficits) ED Course And Treatment - Laboratory Results Result Diagrams: 10/26/17 07:39 10/26/17 07:39 O2 Sat by Pulse Oximetry: 99 (RA) Pulse Ox Interpretation: Normal Medical Decision Making Medical Decision Making: Time: 7:21 Initial Plan: * CMP * CBC * Lipase * IV fluids * Zofran 4 mg IVP * Occult blood, stool * Urinalysis * Pending CT Abd/Pelvis with PO&IV contrast 1108 am pt feeling better after fluids and zofran; ct neg for acute pathology. no episodes of diarrhea in ed. pt instructed on brat diet, and to collect stool sample to bring when she has pmd appt next week. will d/c with zofran. Disposition Counseled Patient/Family Regarding: Studies Performed, Diagnosis, Need For Followup, Rx Given - Disposition Referrals: Adelina Singleton MD [Staff Provider] - Disposition: HOME/ ROUTINE Disposition Time: 11:10 Condition: IMPROVED Additional Instructions: Bude ondansetron si es necesario para las nuseas. Si la diarrea persiste, recoja cedric muestra para llevar cuando darrin al Dr. Singleton la prxima semana. Siga la dieta BRAT: pltano, arroz mendez, pur de manzana, t / horn sabra. Vuelva a la moise de emergencias para fiebre, dolor o cualquier otra preocupacin. Take ondansetron if needed for nausea. If diarrhea persists, collect sample to bring when you see Dr Singleton next week. Follow BRAT diet- banana, plain white rice , applesauce, tea/toast. REturn to ER for fever, worse pain or any other concerns. Prescriptions: Ondansetron ODT [Zofran ODT] 4 mg PO TID #12 odt Instructions: Diarrhea and Traveler's Diarrhea, Adult (DC) Forms: Gen Discharge Inst Salvadorean, [employer] (Salvadorean) - Clinical Impression Clinical Impression: Diarrhea - PA / ARM REST BUILDER / Resident Statement MD/DO has reviewed & agrees with the documentation as recorded. - Scribe Statement The provider has reviewed the documentation as recorded by the Scribe (Ciara Tejeda) All medical record entries made by the Scribe were at my direction and personally dictated by me. I have reviewed the chart and agree that the record accurately reflects my personal performance of the history, physical exam, medical decision making, and the department course for this patient. I have also personally directed, reviewed, and agree with the discharge instructions and disposition.
[2017-10-26] MEDS ORDERED: Sodium Chloride 0.9% 1,000 ML ONE (07:27)
[2017-10-26] MEDS ORDERED: Iohexol 240 (50 ml) ONE (07:27)
[2017-10-26 07:49] LABS: BASO # 0.1 K/uL (0.0-0.2); BASO % 1.2 % (0.0-2.0); EOS # 0.7 K/uL (0.0-0.7); EOS % 11.3 % (0.0-4.0); HEMOGLOBIN 12.5 g/dL (11.0-16.0); LYMPH # 1.5 K/uL (1.0-4.3); LYMPH % 25.8 % (20.0-40.0); MEAN CELL VOLUME 85.6 fL (81.0-99.0); MEAN CORPUSCULAR HEMOGLOBIN 28.5 pg (27.0-31.0); MEAN CORPUSCULAR HGB CONC 33.3 g/dL (33.0-37.0); MEAN PLATELET VOLUME 7.3 fL (7.2-11.7); MONO # 0.5 K/uL (0.0-0.8); MONO % 8.9 % (0.0-10.0); NEUT # 3.2 K/uL (1.8-7.0); NEUT % 52.8 % (50.0-75.0); RBC 4.38 Mil/uL (3.80-5.20); RED CELL DISTRIBUTION WIDTH 14.4 % (11.5-14.5)
[2017-10-26 08:08] LABS: ALB/GLOB RATIO 1.1 (1.0-2.1); ALBUMIN 4.1 g/dL (3.5-5.0); ALT/SGPT 38 U/L (9-52); AST/SGOT 40 U/L (14-36); BLOOD UREA NITROGEN 13 mg/dL (7-17); CALCIUM 8.6 mg/dl (8.6-10.4); GFR AFRICAN-AMERICAN > 60; GFR NON-AFRICAN AMERICAN > 60; LIPASE 61 U/L (23-300)
[2017-10-26] MEDS ORDERED: Iohexol 350mg/ml 100 ML ONE (08:16)
[2017-10-26 08:26] LABS: SQUAMOUS EPITHIAL < 1 /hpf (0-5); URINE BILIRUBIN NEGATIVE (NEGATIVE); URINE BLOOD 1+ (NEGATIVE); URINE CLARITY Clear (Clear); URINE COLOR Yellow (YELLOW); URINE GLUCOSE (UA) NORMAL (Normal); URINE LEUKOCYTE ESTERASE NEG Leu/uL (Negative); URINE PROTEIN NEGATIVE (NEGATIVE); URINE UROBILINOGEN NORMAL mg/dL (0.2-1.0)
[2017-10-26] MEDS ORDERED: Iodixanol 320 MG/ML 100 ML BOTTLE IV ONE (09:31)
--- NOTE | 2017-10-26 10:21 | CT ---
PROCEDURE: CT Abdomen and Pelvis with oral and IV contrast. HISTORY: abd pain COMPARISON: CT abdomen and pelvis performed 09/06/17 TECHNIQUE: Contiguous axial images of the abdomen and pelvis. Oral and IV contrast was administered. Coronal and Sagittal reformats generated and reviewed. Contrast dose: 100 mL Visipaque IV Radiation dose: Total exam DLP = 293.96 mGy-cm. This CT exam was performed using one or more of the following dose reduction techniques: Automated exposure control, adjustment of the mA and/or kV according to patient size, and/or use of iterative reconstruction technique. FINDINGS: LOWER THORAX: No visible consolidation, pleural effusion, or pneumothorax. LIVER: Unremarkable. GALLBLADDER AND BILE DUCTS: Unremarkable. PANCREAS: Unremarkable. SPLEEN: Unremarkable. ADRENALS: Unremarkable. KIDNEYS AND URETERS: The kidneys enhance symmetrically. No hydronephrosis or obstructing renal calculus. BLADDER: The urinary bladder appears unremarkable. REPRODUCTIVE: Uterus is present. APPENDIX: The appendix measures top-normal measuring approximately 6 mm without associated inflammatory changes evident. BOWEL: The stomach is nondistended. The bowel loops appear within normal limits of caliber without evidence of intestinal obstruction. Diverticulosis without CT evidence of acute diverticulitis. PERITONEUM: No significant free fluid. No definite free air. LYMPH NODES: No bulky lymphadenopathy identified. VASCULATURE: No aortic aneurysm. BONES: Degenerative changes of the spine. Mild curvature of the lumbar spine convex to the left. OTHER FINDINGS: None. IMPRESSION: The appendix appears top normal in diameter measuring approximately 6 mm without associated inflammatory changes or secondary signs of acute appendicitis. Correlate clinically. Diverticulosis without CT evidence of acute diverticulitis.
[2017-10-26 11:16] VITALS: BP 124/88; PULSE 64; RESP 18
== END 2017-10-26 11:33 | disposition home or self-care (01) ==
LOC: C.ER 06:36
DX: R19.7 Diarrhea, unspecified (principal)
CPT/HCPCS: 74177; 80053; 81001; 83690; 85025; 96374; 99285; G0328; J2405; J7040; Q9966; Q9967

== ENCOUNTER 2018-08-03 17:37 | Emergency (ER) | payer SELFPAY ==
[2018-08-03 17:37] VITALS: BMI 26.6
[2018-08-03 17:54] VITALS: BP 120/76; PULSE 73; TEMP 98.3; O2SAT 97
--- NOTE | 2018-08-03 18:20 | C.PDOC ---
History Of Present Illness 63 year old female presents to the ED complaining of burning and itching skin rash on arms and back for 15 days. Denies using any new skin care products. Reports she has been taking Aliya with mild relief. Denies any fever, chills, difficulty breathing or swallowing, or any other associated complaints. Time Seen by Provider: 08/03/18 18:12 Chief Complaint (Nursing): Abnormal Skin Integrity History Per: Patient History/Exam Limitations: no limitations Onset/Duration Of Symptoms: Days (15) Current Symptoms Are (Timing): Still Present Possible Cause: Unknown Associated Symptoms: Skin Rash Home/EMS Treatment: Other (Aliya) Past Medical History Reviewed: Historical Data, Nursing Documentation, Vital Signs Vital Signs: Last Vital Signs Temp 98.3 F 08/03/18 17:46 Pulse 73 08/03/18 17:46 Resp 17 08/03/18 17:46 BP 120/76 08/03/18 17:46 Pulse Ox 97 08/03/18 17:46 - Medical History PMH: No Chronic Diseases Denies: HTN Surgical History: No Surg Hx Family History: States: No Known Family Hx - Social History Hx Tobacco Use: No Hx Alcohol Use: No Hx Substance Use: No - Immunization History Hx Tetanus Toxoid Vaccination: No Hx Influenza Vaccination: Yes Hx Pneumococcal Vaccination: No Review Of Systems Except As Marked, All Systems Reviewed And Found Negative. Constitutional: Negative for: Fever, Chills Respiratory: Negative for: Shortness of Breath Skin: Positive for: Rash Physical Exam - Physical Exam Appears: Non-toxic, No Acute Distress Skin: Warm, Dry, Other (excoriations to b/l arms and back ) Head: Normacephalic Eye(s): bilateral: Normal Inspection Nose: Normal Oral Mucosa: Moist Neck: Supple Chest: Symmetrical Cardiovascular: Rhythm Regular Respiratory: Normal Breath Sounds, No Rales, No Rhonchi, No Wheezing Neurological/Psych: Oriented x3, Normal Speech Gait: Steady ED Course And Treatment O2 Sat by Pulse Oximetry: 97 (RA) Pulse Ox Interpretation: Normal Medical Decision Making Medical Decision Making: Plan - Benadryl 50mg PO - Prednisone 60mg PO On re-examination, patient is resting comfortably in no acute distress. Patient reports improvement of symptoms. Patient advised to avoid using skin care products with chemicals and avoid hot showers. Instructed to return to ER if symptoms worsen or new symptoms arise. Disposition Counseled Patient/Family Regarding: Diagnosis, Need For Followup, Rx Given - Disposition Referrals: [facility] [Outside] [facility] [Outside] Disposition: HOME/ ROUTINE Disposition Time: 18:20 Condition: IMPROVED Prescriptions: predniSONE [Prednisone] 60 mg PO DAILY #12 tab Instructions: [place] (DC) Forms: [employer] (Solomon Islander) Print Language: CYPRIOT - Clinical Impression Clinical Impression: Urticaria - Scribe Statement The provider has reviewed the documentation as recorded by the Scribtolu [place] All medical record entries made by the Ryan were at my direction and personally dictated by me. I have reviewed the chart and agree that the record accurately reflects my personal performance of the history, physical exam, medical decision making, and the department course for this patient. I have also personally directed, reviewed, and agree with the discharge instructions and disposition.
[2018-08-03 18:26] VITALS: RESP 18
== END 2018-08-03 18:26 | disposition home or self-care (01) ==
LOC: C.ER 17:37
DX: L50.9 Urticaria, unspecified (principal)

== ENCOUNTER 2018-10-19 10:23 | Emergency (ER) | payer SELFPAY ==
[2018-10-19 10:24] VITALS: BMI 26.6
[2018-10-19 10:37] VITALS: BP 121/75; PULSE 75; RESP 18; TEMP 98.6; O2SAT 97
[2018-10-19] MEDS ORDERED: Dexamethasone 4 mg/1 ml IM STA (10:54)
--- NOTE | 2018-10-19 10:57 | C.PDOC ---
History Of Present Illness 63 y/o female pt with hx of eczema presents to the ER c/o itchy rash on her chin and upper back for x4 days. Pt was seen a the clinic and given a certain eczema cream but that would aggravate her from [id number]. Pt does not use any other medications for her rash. Pt denies lip/tongue swelling, SOB, wheezing and throat closing. Pt also requested muscle relaxer because she has a hx of sciatica and the muscle relaxer helped before. Time Seen by Provider: 10/19/18 10:34 Chief Complaint (Nursing): Abnormal Skin Integrity History Per: Patient History/Exam Limitations: no limitations Onset/Duration Of Symptoms: Days (x4) Current Symptoms Are (Timing): Still Present Past Medical History Reviewed: Historical Data, Nursing Documentation, Vital Signs Vital Signs: Last Vital Signs Temp 98.6 F 10/19/18 10:27 Pulse 75 10/19/18 10:27 Resp 18 10/19/18 10:27 BP 121/75 10/19/18 10:27 Pulse Ox 97 10/19/18 10:27 Family History: States: Unknown Family Hx - Social History Hx Tobacco Use: No Hx Alcohol Use: No Hx Substance Use: No - Immunization History Hx Tetanus Toxoid Vaccination: No Hx Influenza Vaccination: No Hx Pneumococcal Vaccination: No Review Of Systems Constitutional: Negative for: Other (lip swelling) ENT: Negative for: Throat Swelling Respiratory: Negative for: Shortness of Breath, Wheezing Skin: Positive for: Rash (upper back and chin) Physical Exam - Physical Exam Appears: Non-toxic, No Acute Distress Skin: Warm, Dry, Rash (chin and upper back; erythema, dry appearing skin; non vesicular ) Head: Normacephalic Cardiovascular: Rhythm Regular Respiratory: Normal Breath Sounds, No Rales, No Rhonchi, No Wheezing Neurological/Psych: Oriented x3, Normal Speech, Normal Cognition ED Course And Treatment O2 Sat by Pulse Oximetry: 97 (RA) Pulse Ox Interpretation: Normal Progress Note: Plans: -- benadryl. -- decadron injection. Pt will receive rx of benadryl to take home. Disposition Counseled Patient/Family Regarding: Diagnosis, Need For Followup, Rx Given - Disposition Referrals: [facility] [Outside] Disposition: HOME/ ROUTINE Disposition Time: 11:10 Condition: STABLE Additional Instructions: FOLLOW UP IN THE MEDICAL CLINIC IN 1-2 DAYS USE MEDICATIONS NEEDED RETURN TO EMERGENCY ROOM IF YOUR SYMPTOMS BECOME WORSE SEGUIR EN LA CLNICA MDICA EN 1-2 HEADLEY UTILICE MEDICAMENTOS DARIO SE NECESITE VUELVA A LA TINY DE EMERGENCIA SI KELLIE SNTOMAS SE HACEN PEOR Prescriptions: Cyclobenzaprine [Flexeril] 10 mg PO BID PRN #15 tab PRN Reason: Muscle Spasm DiphenhydrAMINE [Benadryl] 25 mg PO Q6 PRN #20 cap PRN Reason: Itching / Pruritus Instructions: Skin Rash (DC), Eczema (Atopic Dermatitis) (DC) Forms: [employer] (Slovak) Print Language: JAPANESE - Clinical Impression Clinical Impression: Medication refill, Eczema, Skin rash - Scribe Statement The provider has reviewed the documentation as recorded by the Ryan Sevilla Do Provider Attestation: All medical record entries made by the Andersibe were at my direction and personally dictated by me. I have reviewed the chart and agree that the record accurately reflects my personal performance of the history, physical exam, medical decision making, and the department course for this patient. I have also personally directed, reviewed, and agree with the discharge instructions and disposition.
[2018-10-19] MEDS ORDERED: Dexamethasone 4 mg/1 ml ONE (11:01)
== END 2018-10-19 11:21 | disposition home or self-care (01) ==
LOC: C.ER 10:23
DX: L30.9 Dermatitis, unspecified (principal); Z76.0 Encounter for issue of repeat prescription
CPT/HCPCS: 96372; 99283; J1100